=== PATIENT | female | born 1990 | race Two or more races ===

== ENCOUNTER 2023-08-02 14:00 | Inpatient (IN) | payer OTHER ==
[~2023-08-02] VITALS: Ht 149.9 cm; Wt 3.2 kg
[2023-08-15] MEDS ORDERED: RINGERS SOLUTION,LACTATED 1,000 ML IV SCH (16:00)
[2023-08-15] MEDS ORDERED: PRENATAL CAPLE1 EAC1 PO (16:28)
[2023-08-15] MEDS ORDERED: MAGNESIUM250 M1 PO (16:29)
[2023-08-15] MEDS ORDERED: VALTREX1000 MG PO (16:29)
[2023-08-15 17:09] LABS: PH,URINE 5.5 (5.0-8.0); URINE APPEARANCE Clear; URINE BACTERIA 32.7 uL (0.0-1933); URINE BILIRRUBIN Negative (NEGATIVE); URINE BLOOD Small; URINE COLOR Yellow; URINE EPITHELIAL CELLS 12.3 uL (0.0-38.8); URINE GLUCOSE Negative (NEGATIVE); URINE LEUKOCYTE Negative; URINE NITRATE Negative; URINE PROTEIN Negative (NEGATIVE); URINE RBC 57.4 uL (0.0-20.8); URINE UROBILINOGEN 0.2 E.U./dl; URINE WBC 2.9 uL (0.0-23.2)
[2023-08-15 17:26] LABS: ALBUMIN 3.1 gm/dL (3.4-5.0); BILIRUBIN TOTAL 0.27 mg/dL (0.3-1.2); CALCIUM 10.1 mg/dL (8.5-10.1); CREATININE SERUM 0.89 mg/dL (0.55-1.02); GFR 73.98; GLOBULINA 4.8 G/DL (2.4-3.5); POTASSIUM 4.38 mEq/L (3.5-5.1); TOTAL PROTEIN 7.9 gm/dL (6.4-8.2)
[2023-08-15 17:41] LABS: HEMATOCRIT 38.6 % (36.0-45.00); HEMOGLOBIN 13.2 g/dL (12.0-15.00); MEAN CELL VOLUME 94.9 fL (80.00-100.00); MEAN CORPUSCULAR HEMOGLOBIN 32.6 pg (27.00-32.0); MEAN CORPUSCULAR HGB CONC 34.3 g/dl (32.0-36.0); PLATELET COUNT 240 K/uL (150-450); RED BLOOD COUNT 4.06 M/uL (4.00-6.00); RED CELL DISTRIBUTION WIDTH 12.5 % (11.5-14.5)
[2023-08-15 17:54] LABS: INR < 0.93; PARTIAL THROMBOPLASTIN TIME 25.8 SECONDS (22.0-34.0); PROTHROMBIN TIME 9.4 SECONDS (9.0-11.5)
[2023-08-15] MEDS ORDERED: ONDANSETRON HCL 2 MG/ML VIAL IV ONE (19:15)
[2023-08-15] MEDS ORDERED: OXYTOCIN 500 ML IV SCH (21:30)
[2023-08-16] MEDS ORDERED: LIDOCAINE HCL 1% 200MG/20ML VIAL IJ ONE (00:32)
[2023-08-16] MEDS ORDERED: CHLORHEXIDINE GLUCONATE 120 ML BOTTLE TOP ONE (00:32)
[2023-08-16] MEDS ORDERED: ERYTHROMYCIN BASE 1 GM TUBE OP ONE (00:33)
[2023-08-16] MEDS ORDERED: OXYTOCIN 20 UNITS/1000ML RL PIGGYBAG IV ONE (00:33)
[2023-08-16] MEDS ORDERED: NALOXONE HCL 0.4 MG/ML AMPUL ONE (04:11)
[2023-08-16] MEDS ORDERED: METHYLERGONOVINE MALEATE 0.2 MG/ML AMPUL ONE (04:11)
[2023-08-16] MEDS ORDERED: IBUprofen 600 MG TABLET PO SCH (06:00)
[2023-08-16 06:16] LABS: ABG PH 7.218 (7.35-7.45); ABG PO2 26.9 mmHg (80-100); SaO2 34.7 %
[2023-08-16 06:17] LABS: BICARBONATE 17.5 mmol/l (23-25); Tco2 18.8 mmol/l; o2 21 %
== END 2023-08-18 18:12 | disposition home or self-care (01) | DRG 807 ==
LOC: OB/GYN 08-15 15:10 → LDR 08-15 15:10 → OB/GYN 08-16 08:11
PROVIDERS: ADMIT Specialist; ATTEND Specialist
PROC: 4A1HXCZ Monitoring of Products of Conception, Cardiac Rate, External Approach (ICD-10-PCS; 2023-08-15)
PROC: 10E0XZZ Delivery of Products of Conception, External Approach (ICD-10-PCS; principal; 2023-08-16)
PROC: 0UQG7ZZ Repair Vagina, Via Natural or Artificial Opening (ICD-10-PCS; 2023-08-16)
DX: O71.4 Obstetric high vaginal laceration alone (principal); Z37.0 Single live birth; Z3A.38 38 weeks gestation of pregnancy; Z20.822 Contact with and (suspected) exposure to COVID-19